=== PATIENT | male | born 1980 | race Caucasian/White ===

== ENCOUNTER 2018-11-20 21:38 | Emergency (ER) | payer MEDICAID ==
[~2018-11-20] VITALS: Ht 185.4 cm; Wt 83.9 kg
[2018-11-21] MEDS ORDERED: IBUPROFEN 600 MG TABLET PO ONE ×2 (00:46→01:00)
[2018-11-21 01:34] VITALS: BP 140/82
--- NOTE | 2018-11-21 01:36 | NUR ---
Patient discharged to home in stable condition. Written and verbal after care instructions given. Patient verbalizes understanding of instruction. pt. ambulatory with cam boot/crutches with a steady gait
== END 2018-11-21 01:36 | disposition home or self-care (01) ==
LOC: ER 21:38
DX: M25.572 Pain in left ankle and joints of left foot (principal); Z98.890 Other specified postprocedural states; W13.2XXA Fall from, out of or through roof, initial encounter; Y93.89 Activity, other specified; Y92.89 Other specified places as the place of occurrence of the external cause; Y99.8 Other external cause status
CPT/HCPCS: 73600; 73630; 99283; A4606; Z7610

== ENCOUNTER 2018-11-23 10:00 | Emergency (ER) | payer MEDICAID ==
[~2018-11-23] VITALS: Ht 185.4 cm; Wt 83.9 kg
--- NOTE | 2018-11-23 10:05 | NUR ---
WAS ADVISED TO HAVE CT AND MRI FOR FRACTURED L FOOT X 2 DAYS AGO, PATIENT LLE COVERED WITH CAM BOOTS.
--- NOTE | 2018-11-23 10:28 | NUR ---
TAKEN DOWN TO RADIOLOGY FOR CT, NAD.
[2018-11-23] MEDS ORDERED: IBUPROFEN 600 MG TABLET PO ONE ×2 (11:26→11:30)
--- NOTE | 2018-11-23 11:58 | NUR ---
Patient discharged to home in stable condition. Crutches provided, remains NWB on LLE. Written and verbal after care instructions given. Patient verbalizes understanding of instruction.
[2018-11-23 12:00] VITALS: BP 123/83
== END 2018-11-23 12:02 | disposition home or self-care (01) ==
LOC: ER 10:04
DX: S92.252A Displaced fracture of navicular [scaphoid] of left foot, initial encounter for closed fracture (principal); S92.192A Other fracture of left talus, initial encounter for closed fracture; Z98.890 Other specified postprocedural states; W13.2XXA Fall from, out of or through roof, initial encounter; Y93.89 Activity, other specified; Y92.89 Other specified places as the place of occurrence of the external cause; Y99.8 Other external cause status
CPT/HCPCS: 73700-TC